=== PATIENT | female | born 1990 | race Two or more races ===

== ENCOUNTER 2019-07-17 10:45 | Emergency (ER) | payer BC ==
[~2019-07-17] VITALS: Ht 162.6 cm; Wt 46.3 kg
--- NOTE | 2019-07-17 11:00 | NUR ---
PATIENT BIB [employer] C/O BLURRING/DOUBLE VISION,HEADACHE STARTED: 929 WHILE DRIVING TO WORK. AMBULATORY WITH STEADY GAIT, ON ROOM AIR, BREATHING EVENLY AND UNLABORED. CONNECTED TO THE MONITOR AND PULSE OX. WILL CONTINUE TO MONITOR ACCORDINGLY.
--- NOTE | 2019-07-17 11:16 | NUR ---
urine collected and sent to lab
--- NOTE | 2019-07-17 11:17 | NUR ---
seizure precaution initiated.
[2019-07-17] MEDS ORDERED: LEVETIRACETAM (500MG) 500 MG in IV NS 0.9% 100 ML IV ONE (11:30)
[2019-07-17] MEDS ORDERED: IV NS 0.9% 1,000 ML BAG IV ONE (11:30)
--- NOTE | 2019-07-17 11:39 | NUR ---
patient resting in bed, asleep, in no distress. Will continue to monitor accordingly.
[2019-07-17 12:38] VITALS: BP 122/81
--- NOTE | 2019-07-17 12:39 | NUR ---
Patient discharged to home in stable condition. Written and verbal after care instructions given. Patient verbalizes understanding of instruction.IV removed. Catheter intact and site benign. Pressure and 4x4 applied to site. No bleeding noted.
== END 2019-07-17 12:39 | disposition home or self-care (01) ==
LOC: ER 10:53
DX: G40.909 Epilepsy, unspecified, not intractable, without status epilepticus (principal); G43.909 Migraine, unspecified, not intractable, without status migrainosus
CPT/HCPCS: 70450; 84703; 96365; 99284; J1953; J7030 ×2